=== PATIENT | male | born 1945 | race Caucasian/White ===

== ENCOUNTER 2021-02-12 12:52 | Emergency (ER) | payer MEDICARE, BC ==
[2021-02-12] MEDS ORDERED: Ibuprofen 400 MG Tab PO ONE (15:12)
--- NOTE | 2021-02-12 15:12 | EDM.PDOC ---
ED HPI GENERAL MEDICAL PROBLEM - General Chief Complaint: General Stated Complaint: COLD SYMPTOMS Time Seen by Provider: 02/12/21 15:12 Source of Information: Reports: Patient, Family History Limitations: Reports: No Limitations - History of Present Illness INITIAL COMMENTS - FREE TEXT/NARRATIVE: pt arrived with a history of a headache and he is very concerned about his resp symptoms. Onset: Today Duration: Hour(s):, Other (pt was very panicy regarding covid. He has had covid vacines x 3) Location: Reports: Head, Face, Generalized Associated Symptoms: Reports: Other (pt did have a headache at the top of his head which was severe. ) Headache Pain Score (Numeric/FACES): 2 - Related Data Allergies Allergy/AdvReac Type Severity Reaction Status Date / Time acetaminophen Allergy Cannot Verified 02/12/21 15:00 [From Tylenol-Codeine] Remember amoxicillin Allergy Headache Verified 02/12/21 15:00 codeine Allergy Cannot Verified 02/12/21 15:00 [From Tylenol-Codeine] Remember Home Meds: Home Meds Propranolol [Inderal] 20 mg PO DAILY 02/12/21 [History] ED ROS GENERAL - Review of Systems Review Of Systems: See Below Constitutional: Reports: No Symptoms HEENT: Reports: Rhinitis, Other ( slight cough) Respiratory: Reports: Cough Cardiovascular: Reports: No Symptoms Endocrine: Reports: No Symptoms GI/Abdominal: Reports: No Symptoms : Reports: No Symptoms Musculoskeletal: Reports: No Symptoms Skin: Reports: No Symptoms ED EXAM, GENERAL - Physical Exam Exam: See Below Free Text/Narrative:: pt had a severe headache at the top of his head today. He devloped nasal congestion. He was panicy and concerned about covid. Exam Limited By: No Limitations General Appearance: Alert, Anxious, Moderate Distress, Other (pupils equal and reactive. ) Ears: Normal TMs Nose: Normal Inspection Throat/Mouth: Normal Inspection Head: Atraumatic Neck: Normal Inspection Respiratory/Chest: No Respiratory Distress Cardiovascular: Regular Rate, Rhythm GI/Abdominal: Soft, Non-Tender (Male) Exam: Deferred Rectal (Males) Exam: Deferred Back Exam: Normal Inspection Extremities: Normal Inspection Neurological: Alert, Oriented, Normal Cognition, Other (pt did have a panic like concern. ) Course - Vital Signs Last Recorded V/S: Last Vital Signs Temp 36.2 C 02/12/21 14:56 Pulse 57 L 02/12/21 14:56 Resp 15 02/12/21 14:56 BP 141/69 H 02/12/21 14:56 Pulse Ox 57 L 02/12/21 14:56 - Orders/Labs/Meds Orders: Active Orders 24 hr Category Date Time Status Isolation [COMM] Stat Oth 02/12/21 15:15 Ordered Labs: Laboratory Tests 02/12/21 02/12/21 Range/Units 15:29 15:30 WBC 6.6 (4.5-11.0) K/uL RBC 4.37 (4.30-5.90) M/uL Hgb 13.6 (12.0-15.0) g/dL Hct 41.4 (40.0-54.0) % MCV 95 (80-98) fL MCH 31 (27-31) pg MCHC 33 (32-36) % Plt Count 226 (150-400) K/uL Neut % (Auto) 53.0 (36-66) % Lymph % (Auto) 27.7 (24-44) % [place] % (Auto) 13.1 H (2-6) % Eos % (Auto) 5.6 H (2-4) % Baso % (Auto) 0.6 (0-1) % Influenza Type A RNA Negative (NEGATIVE) RSV RNA (INAAT) Negative (NEGATIVE) Influenza Type B RNA Negative (NEGATIVE) SARS-CoV-2 RNA (AMAURY) Negative (NEGATIVE) Meds: Medications Discontinued Medications Generic Name Dose Route Start Last Admin Trade Name Freq PRN Reason Stop Dose Admin Ibuprofen 400 mg 02/12/21 15:12 02/12/21 15:26 Ibuprofen 400 Mg Tab PO 02/12/21 15:13 400 mg ONETIME ONE Administration - Re-Assessments/Exams Free Text/Narrative Re-Assessment/Exam: 02/12/21 17:34 pt had a neg covid. His wbc was normal. He is concerned about the recurrent headaches. Departure - Departure Time of Disposition: 17:18 Disposition: Home, Self-Care 01 Condition: Fair Clinical Impression: URI (upper respiratory infection), Headache - Discharge Information Referrals: PCP,None [Primary Care Provider] - Forms: ED Department Discharge Care Plan Goals: pt will rtc tomorrow for a MRI of the head, continue same meds. Sepsis Event Note (ED) - Evaluation Sepsis Screening Result: No Definite Risk - Focused Exam Vital Signs: Vital Signs Temp Pulse Resp BP Pulse Ox 02/12/21 14:56 36.2 C 57 L 15 141/69 H 57 L 02/12/21 14:22 36.2 C 57 L 15 141/69 H 57 L - My Orders Last 24 Hours: My Active Orders 02/12/21 15:15 Isolation [COMM] Stat - Assessment/Plan Last 24 Hours: My Active Orders 02/12/21 15:15 Isolation [COMM] Stat
[2021-02-12 16:12] LABS: CORONAVIRUS COVID-19 NAA NEGATIVE (NEGATIVE)
== END 2021-02-12 18:16 | disposition home or self-care (01) ==
LOC: JP.ED 12:52
DX: J06.9 Acute upper respiratory infection, unspecified (principal); R51.9 Headache, unspecified; Z88.5 Allergy status to narcotic agent; Z88.0 Allergy status to penicillin; Z88.8 Allergy status to other drugs, medicaments and biological substances; Z20.822 Contact with and (suspected) exposure to COVID-19
CPT/HCPCS: 0241U; 36415; 85025; 99283; A9270

== ENCOUNTER → 2021-12-11 | Day surgery (SDC) | payer BC, MEDICARE ==
[~2021-12-11] MED LIST: Acetaminophen 500 MG Tab PO SCH; Bupivacaine 0.5% 50 ML MDV ONE; Dextrose 5%-Lactated Ringers 1,000 ML IV SCH; Lidocaine 0.5% 50 ML SDV ONE; Lidocaine 1% with EPINEPHrine 1:100,000 50 ML MDV ONE; Midazolam 1 MG/ML 2 ML SDV ONE; Propofol 200 MG/20 ML SDV ONE; ceFAZolin 2 GM in Premix Bag 1 BAG IV SCH; fentaNYL 100 MCG/2 ML SDV ONE
== END ==
LOC: JP.SDS 06:00
DX: B07.9 Viral wart, unspecified (principal); L57.0 Actinic keratosis; Z79.899 Other long term (current) drug therapy; Z88.1 Allergy status to other antibiotic agents; Z88.6 Allergy status to analgesic agent; Z88.5 Allergy status to narcotic agent
CPT/HCPCS: 11402; 11423; 12031; 88305; A9270; J0690; J2250; J2704; J3010; J3490; J7121

== ENCOUNTER 2022-04-30 07:14 | Day surgery (SDC) | payer MEDICARE ==
[2022-04-30] MEDS ORDERED: fentaNYL 50 MCG/ML SDV ONE (07:15)
[2022-04-30] MEDS ORDERED: Propofol 200 MG/20 ML SDV ONE (07:15)
[2022-04-30] MEDS ORDERED: Dextrose 5%-Lactated Ringers 1,000 ML IV SCH (07:45)
== END 2022-04-30 11:23 | disposition home or self-care (01) ==
LOC: JP.SDS 07:14
PROVIDERS: ATTEND Surgery
DX: K91.89 Other postprocedural complications and disorders of digestive system (principal); K52.9 Noninfective gastroenteritis and colitis, unspecified; R13.10 Dysphagia, unspecified; K44.9 Diaphragmatic hernia without obstruction or gangrene; K29.60 Other gastritis without bleeding; Z90.49 Acquired absence of other specified parts of digestive tract; Z98.0 Intestinal bypass and anastomosis status
CPT/HCPCS: 43239; 88305; J2704; J3010; J7121

== ENCOUNTER 2022-06-19 08:47 | Inpatient (IN) | payer MEDICARE ==
[~2022-06-19 08:47] MED LIST changes: -Acetaminophen 500 MG Tab PO SCH; +Dexamethasone 4 MG/ML SDV ONE; -Dextrose 5%-Lactated Ringers 1,000 ML IV SCH; +Glycopyrrolate 0.2 MG/ML 5 ML MDV ONE; -Lidocaine 0.5% 50 ML SDV ONE; -Midazolam 1 MG/ML 2 ML SDV ONE; +Neostigmine Methylsulfate 1 MG/ML 5 ML Syringe ONE; +Ondansetron 4 MG/2 ML SDV ONE; +Rocuronium 50 MG/5 ML Vial ONE; +Succinylcholine 200 MG/10 ML MDV ONE; -ceFAZolin 2 GM in Premix Bag 1 BAG IV SCH; +cefOXitin 2 GM Vial ONE; -fentaNYL 100 MCG/2 ML SDV ONE; +fentaNYL 250 MCG/5 ML SDV ONE
[2022-06-19] MEDS ORDERED: Scopolamine 1.5 MG Transdermal Patch TOP SCH (09:00)
[2022-06-19] MEDS ORDERED: Dextrose 5%-Lactated Ringers 1,000 ML IV SCH (09:30)
[2022-06-19] MEDS ORDERED: cefOXitin 2 GM in Sodium Chloride 0.9% 50 ML IV ONE (10:15)
[2022-06-19] MEDS ORDERED: diphenhydrAMINE 25 MG Cap PO PRN (10:35)
[2022-06-19] MEDS ORDERED: Ondansetron 4 MG/2 ML SDV IVPUSH PRN (10:35)
[2022-06-19] MEDS ORDERED: HYDROmorphone/Normal Saline 6 MG/30 ML PCA Vial IV PRN (10:35)
[2022-06-19] MEDS ORDERED: Naloxone 0.4 MG/ML SDV IVPUSH PRN (10:35)
[2022-06-19] MEDS ORDERED: diphenhydrAMINE 50 MG/ML SDV IVPUSH PRN ×2 (10:35→15:00)
[2022-06-19] MEDS ORDERED: Ketamine 23 MG in Sodium Chloride 0.9% 19.77 ML IV SCH (11:30)
[2022-06-19] MEDS ORDERED: Ketamine 500 MG/5 ML MDV IV SCH (11:30)
[2022-06-19] MEDS: Meropenem 500 MG SDV ONE ×2 (12:03→13:00)
[2022-06-19] MEDS ORDERED: fentaNYL 250 MCG/5 ML SDV ONE (12:04)
[2022-06-19] MEDS ORDERED: Labetalol 20 MG/4 ML Syringe ONE (12:18)
[2022-06-19] MEDS ORDERED: Tranexamic Acid 1,000 MG in Sodium Chloride 0.9% 50 ML IV ONE ×2 (12:30→17:00)
[2022-06-19] MEDS ORDERED: Lactated Ringers 1,000 ML ONE (12:47)
[2022-06-19] MEDS ORDERED: Naloxone 0.4 MG/ML SDV ONE (13:31)
[2022-06-19] MEDS ORDERED: Sugammadex Sodium 200 MG/2 ML VIAL ONE (13:38)
[2022-06-19] MEDS ORDERED: hydrALAZINE 20 MG/ML SDV ONE (13:47)
[2022-06-19] MEDS ORDERED: Cyclobenzaprine 10 MG Tab PO PRN (14:34)
[2022-06-19] MEDS ORDERED: Acetaminophen 500 MG Tab PO PRN (15:00)
[2022-06-19] MEDS ORDERED: hydrOXYzine HCl 50 MG/ML SDV IM PRN (15:00)
[2022-06-19] MEDS ORDERED: Labetalol 20 MG/4 ML Syringe IVPUSH PRN (15:00)
[2022-06-19] MEDS ORDERED: MVI, Adult with Vitamin K 10 ML, Thiamine 200 MG, Zinc/Copper/Manganese/Selenium 1 ML i... IV SCH ×4 (16:00)
[2022-06-19] MEDS: Pantoprazole 40 MG Vial IVPUSH SCH (16:08)
[2022-06-19] MEDS: Ondansetron 4 MG/2 ML SDV IVPUSH PRN (16:08)
[2022-06-19] MEDS: SCOPOLAMINE PATCH CHECK TOP SCH (16:19)
[2022-06-19] MEDS: cefOXitin 2 GM in Sodium Chloride 0.9% 50 ML IV SCH (17:03)
[2022-06-19] MEDS: Heparin Sodium 5,000 Units/ML Vial SUBCUT SCH (19:26)
[2022-06-19] MEDS: Propranolol 40 MG Tab PO SCH (20:56)
[2022-06-19] MEDS: Acetaminophen 500 MG Tab PO SCH (22:41)
[2022-06-19] MEDS: Dextrose 5%-Lactated Ringers 1,000 ML IV SCH (22:47)
[2022-06-20] MEDS: cefOXitin 2 GM in Sodium Chloride 0.9% 50 ML IV SCH ×5 (00:35→23:21)
[2022-06-20] MEDS ORDERED: Iopamidol 612 MG/ML 30 ML SDV PO STA (03:05)
[2022-06-20] MEDS: Dextrose 5%-Lactated Ringers 1,000 ML IV SCH (04:17)
[2022-06-20 05:16] LABS: ESTIMATED GFR 57 mL/min (>60)
[2022-06-20] MEDS: Acetaminophen 500 MG Tab PO SCH ×3 (06:11→21:06)
[2022-06-20] MEDS ORDERED: Potassium Phosphates 3 mMole/ML 15 ML SDV IV ONE (08:15)
[2022-06-20] MEDS ORDERED: MVI, Adult with Vitamin K 10 ML, Thiamine 200 MG, Zinc/Copper/Manganese/Selenium 1 ML i... IV SCH ×8 (08:16→16:00)
[2022-06-20] MEDS: Ondansetron 4 MG/2 ML SDV IVPUSH PRN (08:18)
[2022-06-20] MEDS: SCOPOLAMINE PATCH CHECK TOP SCH (08:20)
[2022-06-20] MEDS: Propranolol 40 MG Tab PO SCH ×2 (08:20→21:05)
[2022-06-20] MEDS ORDERED: Tamsulosin 0.4 MG Cap.ER PO ONE (08:30)
[2022-06-20] MEDS: Metoclopramide 10 MG/2 ML SDV IVPUSH PRN (09:49)
[2022-06-20] MEDS: Heparin Sodium 5,000 Units/ML Vial SUBCUT SCH ×2 (09:50→21:06)
[2022-06-20] MEDS: Magnesium Sulfate/Water 2 GM/50 ML BAG IV SCH ×3 (09:51→23:22)
[2022-06-20] MEDS ORDERED: Potassium Phos in 0.9 % NaCl 15 MMOL in Premix Bag 1 BAG IV SCH ×2 (10:00)
[2022-06-20] MEDS: Lactated Ringers 1,000 ML IV SCH (10:41)
[2022-06-20] MEDS: Potassium Phos in 0.9 % NaCl 15 MMOL in Premix Bag 1 BAG IV SCH ×4 (13:08→20:09)
[2022-06-20] MEDS: Pantoprazole 40 MG Vial IVPUSH SCH (17:08)
[2022-06-20] MEDS: Tamsulosin 0.4 MG Cap.ER PO SCH (21:05)
[2022-06-21] MEDS: Magnesium Sulfate/Water 2 GM/50 ML BAG IV SCH ×4 (04:14→21:29)
[2022-06-21] MEDS: Lactated Ringers 1,000 ML IV SCH ×3 (04:16→12:29)
[2022-06-21 05:32] LABS: ESTIMATED GFR 57 mL/min (>60)
[2022-06-21] MEDS: Acetaminophen 500 MG Tab PO SCH ×3 (05:45→21:29)
[2022-06-21] MEDS ORDERED: Bupivacaine 0.5% 50 ML MDV ONE (06:51)
[2022-06-21] MEDS ORDERED: Meropenem 500 MG SDV ONE (06:51)
[2022-06-21] MEDS ORDERED: Lidocaine 1% with EPINEPHrine 1:100,000 50 ML MDV ONE (06:51)
[2022-06-21] MEDS ORDERED: Propofol 200 MG/20 ML SDV ONE ×2 (07:03→08:32)
[2022-06-21] MEDS ORDERED: Cyanocobalamin (Vitamin B12) 1,000 MCG/ML SDV IM ONE (09:00)
[2022-06-21] MEDS: Propranolol 40 MG Tab PO SCH ×2 (09:45→21:31)
[2022-06-21] MEDS: Heparin Sodium 5,000 Units/ML Vial SUBCUT SCH ×2 (09:45→21:28)
[2022-06-21] MEDS: SCOPOLAMINE PATCH CHECK TOP SCH (10:52)
[2022-06-21] MEDS: Pantoprazole 40 MG Delayed-Release Granules 1 Packet PO SCH (16:49)
[2022-06-21] MEDS: Tamsulosin 0.4 MG Cap.ER PO SCH (21:29)
[2022-06-21] MEDS: Metoclopramide 10 MG/2 ML SDV IVPUSH PRN (21:41)
[2022-06-22] MEDS: Magnesium Sulfate/Water 2 GM/50 ML BAG IV SCH ×4 (03:56→22:36)
[2022-06-22] MEDS: Acetaminophen 500 MG Tab PO SCH ×3 (05:53→21:27)
[2022-06-22] MEDS ORDERED: traMADol 50 MG Tab PO PRN (07:12)
[2022-06-22] MEDS ORDERED: Calcium Carbonate 500 MG Tab.Chew PO PRN (07:16)
[2022-06-22] MEDS: Heparin Sodium 5,000 Units/ML Vial SUBCUT SCH ×2 (08:29→21:08)
[2022-06-22] MEDS: Propranolol 40 MG Tab PO SCH ×2 (08:31→21:27)
[2022-06-22] MEDS: Azithromycin 125 MG in Sodium Chloride 0.9% 100 ML IV SCH ×2 (08:41→21:18)
[2022-06-22] MEDS: Pantoprazole 40 MG Delayed-Release Granules 1 Packet PO SCH (16:16)
[2022-06-22] MEDS ORDERED: Bisacodyl 10 MG Supp RECTAL ONE (17:08)
[2022-06-22] MEDS ORDERED: Bisacodyl 10 MG Supp RECTAL PRN (17:08)
[2022-06-22] MEDS: Ondansetron 4 MG/2 ML SDV IVPUSH PRN (17:48)
[2022-06-22] MEDS: Bisacodyl 5 MG Tab PO SCH (17:50)
[2022-06-22] MEDS ORDERED: Ketorolac 30 MG/ML SDV IVPUSH PRN (20:04)
[2022-06-22] MEDS ORDERED: Ketorolac 30 MG/ML SDV IM STA (20:27)
[2022-06-22] MEDS: Tamsulosin 0.4 MG Cap.ER PO SCH (21:27)
[2022-06-23] MEDS: Magnesium Sulfate/Water 2 GM/50 ML BAG IV SCH (03:55)
[2022-06-23] MEDS: Lactated Ringers 1,000 ML IV SCH (03:57)
[2022-06-23 05:02] LABS: ESTIMATED GFR 63 mL/min (>60)
[2022-06-23] MEDS: Acetaminophen 500 MG Tab PO SCH ×3 (05:45→22:02)
[2022-06-23] MEDS ORDERED: Magnesium Hydroxide 400 MG/5 ML Susp 30 ML Cup PO ONE (07:45)
[2022-06-23] MEDS: Heparin Sodium 5,000 Units/ML Vial SUBCUT SCH ×2 (08:22→20:02)
[2022-06-23] MEDS: Propranolol 40 MG Tab PO SCH ×2 (08:24→20:01)
[2022-06-23] MEDS: Docusate Sodium 100 MG Cap PO SCH ×2 (10:00→20:01)
[2022-06-23] MEDS: Bisacodyl 5 MG Tab PO SCH ×2 (10:00→20:01)
[2022-06-23] MEDS: Azithromycin 125 MG in Sodium Chloride 0.9% 100 ML IV SCH ×2 (10:01→20:01)
[2022-06-23] MEDS ORDERED: Magnesium Hydroxide 400 MG/5 ML Susp 30 ML Cup PO PRN (15:45)
[2022-06-23] MEDS: Pantoprazole 40 MG Delayed-Release Granules 1 Packet PO SCH (15:49)
[2022-06-23] MEDS: Tamsulosin 0.4 MG Cap.ER PO SCH (20:01)
[2022-06-24] MEDS: Acetaminophen 500 MG Tab PO SCH (05:31)
[2022-06-24] MEDS: Heparin Sodium 5,000 Units/ML Vial SUBCUT SCH (08:08)
[2022-06-24] MEDS: Bisacodyl 5 MG Tab PO SCH (09:38)
[2022-06-24] MEDS: Azithromycin 125 MG in Sodium Chloride 0.9% 100 ML IV SCH (09:38)
[2022-06-24] MEDS: Propranolol 40 MG Tab PO SCH (09:38)
[2022-06-24] MEDS: Docusate Sodium 100 MG Cap PO SCH (09:38)
== END 2022-06-24 10:10 | disposition home or self-care (01) | DRG 327 ==
LOC: JP.SDS 08:47 → JP.MS 13:00
PROVIDERS: ADMIT Surgery; ATTEND Surgery
PROC: 0D160ZA Bypass Stomach to Jejunum, Open Approach (ICD-10-PCS; principal; 2022-06-19)
PROC: 0DT80ZZ Resection of Small Intestine, Open Approach (ICD-10-PCS; 2022-06-19)
PROC: 0DBW0ZZ Excision of Peritoneum, Open Approach (ICD-10-PCS; 2022-06-19)
PROC: 0WUF0JZ Supplement Abdominal Wall with Synthetic Substitute, Open Approach (ICD-10-PCS; 2022-06-19)
PROC: 0WQF0ZZ Repair Abdominal Wall, Open Approach (ICD-10-PCS; 2022-06-21)
DX: K43.0 Incisional hernia with obstruction, without gangrene (principal); K55.9 Vascular disorder of intestine, unspecified; K21.9 Gastro-esophageal reflux disease without esophagitis; R51.9 Headache, unspecified; Z88.0 Allergy status to penicillin; Z88.5 Allergy status to narcotic agent; Z87.891 Personal history of nicotine dependence; K66.8 Other specified disorders of peritoneum
CPT/HCPCS: 36415; 74019; 74019-26; 74240; 74240-26; 80053; 83735; 83880; 84100; 85025; 85027; A9270-GY; C9113; J0131; J0171; J0330; J0360; J0456; J0694; J1100; J1170; J1644; J1885; J2185; J2310; J2405; J2704; J2710; J2765; J2795; J3010; J3410; J3411; J3420; J3475; J3490; J7120; J7121; Q9967

== ENCOUNTER 2023-06-17 13:57 | Emergency (ER) | payer MEDICARE ==
[2023-06-17 14:41] LABS: BASOPHILS PERCENT AUTO 0.4 % (0.1-1.3); EOSINOPHILS ABSOLUTE AUTO 0.04 K/uL (0.00-0.40); EOSINOPHILS PERCENT AUTO 0.7 % (0.0-5.4); HEMATOCRIT 39.9 % (38.4-49.7); HEMOGLOBIN 14.3 g/dL (12.9-16.9); IMMATURE GRAN PERCENT AUTO 0.4 % (0.0-0.7); LYMPHOCYTES ABSOLUTE AUTO 0.42 K/uL (0.8-3.3); LYMPHOCYTES PERCENT AUTO 7.7 % (11.4-47.7); MEAN CORPUSCULAR HEMOGLOBIN 34.6 pg (31.6-35.5); MEAN CORPUSCULAR HGB CONC 35.8 g/dL (31.6-35.5); MEAN CORPUSCULAR VOLUME 96.6 fL (81.4-99.0); MONOCYTES ABSOLUTE AUTO 0.39 K/uL (0.20-0.90); MONOCYTES PERCENT AUTO 7.2 % (3.3-12.6); NEUTROPHILS ABSOLUTE AUTO 4.54 K/uL (1.0-7.6); NEUTROPHILS PERCENT AUTO 83.6 % (40.0-78.1); PLATELET COUNT,PLT 143 K/uL (130-375); RED BLOOD CELL COUNT 4.13 M/uL (4.14-5.76); WHITE BLOOD CELL COUNT,WBC 5.4 K/uL (3.2-11.0)
[2023-06-17 14:47] LABS: CORONAVIRUS COVID-19 NAA NEGATIVE (NEGATIVE); INFLUENZA A NAA NEGATIVE (NEGATIVE); INFLUENZA B NAA NEGATIVE (NEGATIVE); RESPIRATORY SYNCYTIAL VIR NAA NEGATIVE (NEGATIVE)
[2023-06-17 14:49] LABS: BASOPHILS ABSOLUTE AUTO 0.02 K/uL (0.00-0.10); IMMATURE GRAN ABSOLUTE AUTO 0.02 K/uL (0.00-0.23)
[2023-06-17 15:02] LABS: A/G RATIO 0.9 (1.2-2.2); ALANINE AMINOTRANSFERASE,ALT 37 U/L (12-78); ALBUMIN 3.3 g/dL (3.4-5.0); ALKALINE PHOSPHATASE 116 U/L (46-116); ANION GAP 8.1 mmol/L (5.0-14.0); ASPARTATE AMNIOTRANSFERASE,AST 28 U/L (15-37); BILIRUBIN TOTAL 0.5 mg/dL (0.2-1.0); BLOOD UREA NITROGEN,BUN 16 mg/dL (7-18); C-REACTIVE PROTEIN 0.62 mg/dL (<0.50); CALCIUM 8.5 mg/dL (8.5-10.1); CARBON DIOXIDE,CO2 29 mmol/L (21-32); CHLORIDE,CL 103 mmol/L (100-108); CREATININE 1.3 mg/dL (0.8-1.3); EST CRCL DRUG DOSING (CG) 53.06 mL/min; ESTIMATED GFR 57 mL/min (>60); GLUCOSE RANDOM 101 mg/dL (74-106); PROTEIN TOTAL,TP 6.9 g/dL (6.4-8.2); SODIUM,NA 140 mmol/L (140-148)
[2023-06-17 15:21] LABS: LYME AB IgG Negative (Negative); LYME AB IgM Negative (Negative)
[2023-06-17] MEDS: Acetaminophen 500 MG Tab PO ONE (16:56)
== END 2023-06-17 17:04 | disposition home or self-care (01) ==
LOC: JP.ED 13:57
DX: A08.4 Viral intestinal infection, unspecified (principal); I10 Essential (primary) hypertension; Z88.0 Allergy status to penicillin; Z88.5 Allergy status to narcotic agent; Z79.01 Long term (current) use of anticoagulants; Z86.19 Personal history of other infectious and parasitic diseases; Z90.49 Acquired absence of other specified parts of digestive tract
CPT/HCPCS: 0241U; 36415; 80053; 83690; 85025; 85651; 86140; 86618; 87468; 87469; 87484; 87798; 99284; A9270

== ENCOUNTER 2023-06-19 10:15 | Emergency (ER) | payer MEDICARE ==
[2023-06-19] MEDS ORDERED: Naloxone 0.4 MG/ML SDV IVPUSH PRN (10:26)
[2023-06-19] MEDS: HYDROmorphone 0.5 MG/0.5 ML Syringe IVPUSH ONE (10:39)
[2023-06-19 10:41] LABS: BASOPHILS PERCENT AUTO 0.7 % (0.1-1.3); HEMATOCRIT 48.3 % (38.4-49.7); HEMOGLOBIN 17.2 g/dL (12.9-16.9); IMMATURE GRAN PERCENT AUTO 0.4 % (0.0-0.7); LYMPHOCYTES ABSOLUTE AUTO 0.34 K/uL (0.8-3.3); LYMPHOCYTES PERCENT AUTO 12.2 % (11.4-47.7); MEAN CORPUSCULAR HEMOGLOBIN 33.8 pg (31.6-35.5); MEAN CORPUSCULAR HGB CONC 35.6 g/dL (31.6-35.5); MEAN CORPUSCULAR VOLUME 94.9 fL (81.4-99.0); MONOCYTES ABSOLUTE AUTO 0.11 K/uL (0.20-0.90); NEUTROPHILS PERCENT AUTO 82.7 % (40.0-78.1); PLATELET COUNT,PLT 76 K/uL (130-375); RED BLOOD CELL COUNT 5.09 M/uL (4.14-5.76); WHITE BLOOD CELL COUNT,WBC 2.8 K/uL (3.2-11.0)
[2023-06-19 10:43] LABS: BASOPHILS ABSOLUTE AUTO 0.02 K/uL (0.00-0.10); IMMATURE GRAN ABSOLUTE AUTO 0.01 K/uL (0.00-0.23)
[2023-06-19 11:27] LABS: CALCIUM 8.7 mg/dL (8.5-10.1); CREATININE 1.4 mg/dL (0.8-1.3); EST CRCL DRUG DOSING (CG) 49.27 mL/min; POTASSIUM,K 3.8 mmol/L (3.6-5.2)
[2023-06-19 11:29] LABS: ANION GAP 11.8 mmol/L (5.0-14.0)
== END 2023-06-19 12:35 | disposition home or self-care (01) ==
LOC: JP.ED 10:15
DX: R51.9 Headache, unspecified (principal); I10 Essential (primary) hypertension; Z88.0 Allergy status to penicillin; Z88.5 Allergy status to narcotic agent; Z79.899 Other long term (current) drug therapy; Z86.16 Personal history of COVID-19; Z90.49 Acquired absence of other specified parts of digestive tract; Z87.891 Personal history of nicotine dependence; Z79.01 Long term (current) use of anticoagulants
CPT/HCPCS: 36415; 70450; 80048; 85025; 96374; 99284; J1170